=== PATIENT | male | born 1985 | race Caucasian/White ===

== ENCOUNTER 2023-09-09 23:40 | Emergency (ER) | payer MEDICAID ==
[~2023-09-09] VITALS: Ht 170.2 cm; Wt 125.0 kg
[2023-09-09 23:58] VITALS: BP 150/75; PULSE 78; RESP 16; TEMP 98.4; O2SAT 96
== END 2023-09-10 05:10 | disposition left against medical advice (07) ==
LOC: ER 23:40
DX: R07.89 Other chest pain (principal); Z53.21 Procedure and treatment not carried out due to patient leaving prior to being seen by health care provider
CPT/HCPCS: 93005; 99281

== ENCOUNTER 2023-12-09 01:17 | Emergency (ER) | payer MEDICAID ==
[~2023-12-09] VITALS: Ht 170.2 cm; Wt 120.0 kg
[2023-12-09 01:40] VITALS: BP 153/91; PULSE 94; RESP 16; TEMP 98.1; O2SAT 98
== END 2023-12-09 03:27 | disposition left against medical advice (07) ==
LOC: ER 01:17
DX: R51.9 Headache, unspecified (principal); Z53.21 Procedure and treatment not carried out due to patient leaving prior to being seen by health care provider
CPT/HCPCS: 99281